=== PATIENT | male | born 1965 | race Hispanic/Latino ===

== ENCOUNTER 2021-04-27 10:34 | Emergency (ER) | payer OTHER, SELFPAY ==
[2021-04-27] MEDS ORDERED: Ketorolac Tromethamine 30 MG/ML VIAL ONE (12:59)
== END 2021-04-27 13:17 | disposition home or self-care (01) ==
LOC: EEVIPCON 10:34 → ERS 10:34
DX: M25.511 Pain in right shoulder (principal); F17.210 Nicotine dependence, cigarettes, uncomplicated
CPT/HCPCS: 96372; J1885

== ENCOUNTER 2023-11-26 14:11 | Observation (INO) | payer SELFPAY ==
[2023-11-26] MEDS ORDERED: Sodium Chloride 0.9% 100 ML ONE (15:15)
[2023-11-26] MEDS ORDERED: CEFAZOLIN 2 GM VIAL ONE (15:15)
[2023-11-26] MEDS ORDERED: Boostrix 0.5 ML (Tdap) VIAL (>/=7 yrs of age) ONE (15:26)
[2023-11-26] MEDS ORDERED: fentaNYL 50 mcg/mL 1 mL Vial ONE ×2 (15:26→18:45)
[2023-11-26 15:29] LABS: #Basophils 0.03 10x3/uL (0.0-0.2); %Basophils 0.7 % (0.0-1.0); %Monocytes 8.8 % (0.0-10.0); %Neutrophils 56.3 % (42.0-75.0); Hematocrit 42.9 % (42.0-52.0); Hemoglobin 15.4 g/dL (14.0-18.0); Mean Corpuscular HGB CONC 35.9 g/dL (32.0-36.0); Mean Corpuscular Hemoglobin 31.7 pg (27.0-31.0); Mean Corpuscular Volume 88.3 fL (78.0-98.0); Mean Platelet Volume 10.7 fL (7.4-10.4); Platelet Count 137 10x3/uL (130-400); RBC Distribution Width 12.3 % (11.5-14.5); Red Blood Cell (RBC) Count 4.86 mill/uL (4.70-6.10)
[2023-11-26 15:43] LABS: PTT 32.9 sec (22.9-36.1); Prothrombin Time 13.4 sec (12.0-14.7)
[2023-11-26] MEDS ORDERED: Morphine 4 MG/ML VIAL ONE (15:49)
[2023-11-26] MEDS ORDERED: Ondansetron ODT 4 MG TAB PO PRN (15:55)
[2023-11-26] MEDS ORDERED: Acetaminophen 325 MG TAB PO PRN (15:55)
[2023-11-26] MEDS ORDERED: traMADol HCl 50 MG TAB PO PRN (15:55)
[2023-11-26] MEDS ORDERED: Acetaminophen/Codeine 30-300mg Tablet PO PRN (15:55)
[2023-11-26] MEDS ORDERED: Ketorolac Tromethamine 30 MG (1 mL) VIAL IVP PRN (15:55)
[2023-11-26] MEDS ORDERED: Ondansetron PF 4 MG/2 ML Vial IVP PRN (15:55)
[2023-11-26 15:57] LABS: ALT (SGPT) 72 U/L (8-55); AST (SGOT) 50 U/L (5-34); Albumin 4.2 g/dL (3.5-5.0); Alkaline Phosphatase 144 U/L (40-110); Anion Gap 11 mmol/L (10-20); BUN (Urea Nitrogen) 16 mg/dL (8.4-25.7); Bilirubin, Total 0.6 mg/dL (0.2-1.2); Calc. Creatinine Clearance 0 mL/min (70-130); Calcium 9.4 mg/dL (7.8-10.44); Carbon Dioxide 23 mmol/L (22-29); Chloride 105 mmol/L (98-107); Estimated GFR 45; Globulin 3.2 g/dL (2.4-3.5); Glucose 437 mg/dL (70-105); Potassium 4.4 mmol/L (3.5-5.1); Protein, Total 7.4 g/dL (6.0-8.3); Sodium 135 mmol/L (136-145)
[2023-11-26] MEDS ORDERED: CEFAZOLIN 2 GM in Sodium Chloride 0.9% 100 ML IVPB SCH (16:00)
[2023-11-26] MEDS ORDERED: PROPOFOL 20 ML ONE (16:06)
[2023-11-26] MEDS ORDERED: fentaNYL PF 100 MCG/2 ML SYRINGE ONE (16:06)
[2023-11-26] MEDS ORDERED: Sevoflurane 250 ML INH ANEST BOTTLE ONE (16:07)
[2023-11-26] MEDS ORDERED: Lidocaine 1% PF 5 ML VIAL ONE (16:09)
[2023-11-26] MEDS ORDERED: SUCCINYLCHOLINE/SOD CL,ISO/PF 200 MG/10 ML SYRINGE FS ONE (16:09)
[2023-11-26] MEDS ORDERED: Dextrose 5% in Water 1,000 ML IV PRN (16:23)
[2023-11-26] MEDS ORDERED: Dextrose 50% Abboject 50 ML SYRINGE SLOW IVP PRN (16:23)
[2023-11-26] MEDS ORDERED: Glucagon 1 MG/ML KIT IM PRN (16:23)
[2023-11-26] MEDS ORDERED: HumaLOG 300 UNITS/3 ML VIAL SC PRN ×2 (16:23)
[2023-11-26] MEDS ORDERED: Glycopyrrolate 0.2 MG/ML 5 ML SYRINGE ONE (16:54)
[2023-11-26] MEDS ORDERED: Ketorolac Tromethamine 30 MG (1 mL) VIAL ONE (17:18)
[2023-11-26] MEDS ORDERED: Ondansetron PF 4 MG/2 ML Vial ONE (17:18)
[2023-11-26] MEDS ORDERED: Dexamethasone 4 mg/ml Vial ONE (17:18)
[2023-11-26] MEDS ORDERED: HYDROmorphone 2 MG/ML VIAL SLOW IVP PRN (17:48)
[2023-11-26] MEDS ORDERED: PACU-Morphine 4MG/ML VIAL SLOW IVP PRN (17:48)
[2023-11-26] MEDS ORDERED: Promethazine HCl 25 MG/ML VIAL IM PRN (17:48)
[2023-11-26] MEDS ORDERED: Ondansetron HCl/PF 4 MG/2 ML Vial IVP PRN (17:48)
[2023-11-26] MEDS ORDERED: Morphine Sulfate 2 MG/ML SYRINGE SLOW IVP PRN (17:48)
[2023-11-26] MEDS: Gentamicin 350 MG, Admixture Fee 1 EACH in Sodium Chloride 0.9% 100 ML IVPB SCH (18:29)
[2023-11-26 19:33] VITALS: BMI 24.3
[2023-11-26] MEDS: Sodium Chloride 0.9% 1,000 ML IV SCH (20:34)
[2023-11-26] MEDS: Insulin Lispro 100 UNIT/ML 10 ML VIAL SC PRN (21:58)
[2023-11-26 22:05] LABS: Bacteria/HPF None Seen HPF (None Seen); Bilirubin Negative (Negative); Blood, Urine Trace (Negative); Clarity Clear (Clear); Glucose, Urine (Dipstick) Greater than 1000 mg/dL (Negative); Ketone, Urine Negative (Negative); Leukocyte Negative Leu/uL (Negative); Nitrite Negative (Negative); Protein, Urine (Dipstick) 20 mg/dL (Neg-Trace); RBC/HPF 0-3 HPF (0-3); Specific Gravity, Urine 1.027 (1.002-1.036); Squamous Epithelial None Seen HPF (0-3); Urobilinogen Normal mg/dL (Less than 2); WBC/HPF 0-3 HPF (0-3)
[2023-11-27] MEDS: traMADol HCl 50 MG TAB PO PRN (05:54)
[2023-11-27] MEDS: Insulin Lispro 100 UNIT/ML 10 ML VIAL SC PRN (05:54)
[2023-11-27 06:51] LABS: Anion Gap 9 mmol/L (10-20); BUN (Urea Nitrogen) 19 mg/dL (8.4-25.7); Calc. Creatinine Clearance 98 mL/min (70-130); Calcium 8.6 mg/dL (7.8-10.44); Carbon Dioxide 21 mmol/L (22-29); Chloride 107 mmol/L (98-107); Estimated GFR 102; Glucose 229 mg/dL (70-105); Magnesium 1.7 mg/dL (1.6-2.6); Potassium 4.2 mmol/L (3.5-5.1); Sodium 133 mmol/L (136-145)
[2023-11-27] MEDS ORDERED: Morphine 2 MG/ML VIAL SLOW IVP PRN (07:29)
[2023-11-27 07:57] VITALS: TEMP 97.7
[2023-11-27] MEDS ORDERED: traMADol HCl 50 MG TAB PO PRN (09:04)
[2023-11-27] MEDS: Insulin Glargine 30 UNITS/0.3 ML VIAL SC SCH (11:11)
[2023-11-27] MEDS: Cephalexin 250 MG CAP PO SCH (11:11)
[2023-11-27] MEDS: Pioglitazone HCl 45 MG TAB PO SCH (11:11)
[2023-11-27] MEDS: CEFAZOLIN 2 GM in Sodium Chloride 0.9% 100 ML IVPB SCH (11:14)
[2023-11-27 11:44] VITALS: BP 148/76
[2023-11-27] MEDS ORDERED: Cephalexin 250 MG CAP PO SCH (12:00)
== END 2023-11-27 13:44 | disposition home or self-care (01) ==
LOC: ERS 14:11 → SDC 16:19 → SURG B 18:03
PROVIDERS: ADMIT Orthopaedic Surgery; ATTEND Orthopaedic Surgery
PROC: 0HQBXZZ Repair Right Upper Arm Skin, External Approach (ICD-10-PCS; principal; 2023-11-26)
DX: S41.111A Laceration without foreign body of right upper arm, initial encounter (principal); E11.65 Type 2 diabetes mellitus with hyperglycemia; N17.9 Acute kidney failure, unspecified; E86.1 Hypovolemia; E86.0 Dehydration; I10 Essential (primary) hypertension; Z79.899 Other long term (current) drug therapy; Z79.84 Long term (current) use of oral hypoglycemic drugs; W29.3XXA Contact with powered garden and outdoor hand tools and machinery, initial encounter
CPT/HCPCS: 36415; 36416; 80048; 80053; 81001; 83036; 83605; 83735; 85025; 85610; 85730; 90471; 90715; 96374; 96375; J1100; J1580; J1815; J1885; J2270; J2405; J2704; J3010; J3490; J7050